=== PATIENT | female | born 1970 | race Caucasian/White ===

== ENCOUNTER 2019-06-27 19:52 | Emergency (ER) | payer OTHER, SELFPAY ==
[2019-06-27 20:30] VITALS: BP 133/69; PULSE 91; RESP 18; TEMP 37.3; O2SAT 100
[2019-06-27 20:35] LABS: Basophils Absolute Auto 0.1 K/mm3 (0.0-0.1); Basophils Percent Auto 0.7 % (0.2-1.2); Eosinophils Percent Auto 0.1 % (0-4.4); Hematocrit 45.1 % (37.0-47.0); Immature Granulocyte Absolute 0.04 K/mm3 (0.00-0.031); Immature Granulocyte Percent A 0.3 % (0-0.5); Lymphocytes Absolute Auto 1.53 K/mm3 (0.9-3.2); Lymphocytes Percent Auto 10.3 % (18.3-44.2); Mean Corpuscular HGB Conc 33.3 g/dl (32-36); Mean Corpuscular Hemoglobin 29.6 pg (26-34); Mean Corpuscular Volume 89.1 fl (80-100); Mean Platelet Volume 9.9 fl (7.4-10.4); Monocytes Absolute Auto 0.7 K/mm3 (0.1-0.6); Monocytes Percent Auto 4.4 % (2.6-8.5); Neutrophils Absolute Auto 12.5 K/mm3 (1.3-6.7); Neutrophils Percent Auto 84.2 % (45.5-73.1); Platelet Count Result 359 k/mm3 (150-375); Red Blood Count 5.06 M/mm3 (4.2-5.4); Red Cell Distribution Width 12.2 % (11.5-14.5); White Blood Count 14.8 K/mm3 (4.5-10.0)
[2019-06-27 20:47] LABS: Alanine Aminotransferase 13 U/L (4-35); Albumin Level 4.5 g/dL (3.5-5.1); Alkaline Phosphatase 134 U/L (38-126); Aspartate Amino Transferase 19 U/L (14-36); Bilirubin,Total 0.6 mg/dL (0.2-1.3); Blood Urea Nitrogen 8 mg/dL (7-17); Calcium 11.3 mg/dL (8.4-10.2); Carbon Dioxide 23 mmol/L (22-30); Chloride 102 mmol/L (98-107); Estimated Glomerular Filt Rate > 60; Glucose 106 mg/dL (65-105); Lipase 18 U/L (23-300); Sodium 140 mmol/L (137-145)
[2019-06-27 20:51] LABS: Add Urine Microscopic? YES; Amorphous Sediment Urine Few; Appearance Urine Cloudy (Clear); Bacteria Urine Trace /hpf; Bilirubin Urine Negative (Negative); Blood Urine 2+ (Negative); Calcium Oxalate Crystals Urine Present /hpf; Color Urine Yellow (Yellow); Glucose Urine UA Negative (Negative); Ketones Urine 2+ mg/dL (Negative); Leukocyte Esterase Ur Trace LEU/UL (Negative); Mucus Urine Rare /lpf; Nitrate Urine Negative (Negative); Protein Urine Negative (Negative); RBC Urine 21-50 /hpf (0-2); Renal Epithelial Cells Urine Rare /hpf (None Seen); Specific Grav Ur 1.018 (1.001-1.035); Squamous Epithelial Cell Urine Many /hpf (Few)
--- NOTE | 2019-06-27 21:13 | ED.FEVER ---
HPI - Fever General Chief Complaint: Fever Stated Complaint: dehydration Time Seen by Provider: 06/27/19 21:12 Related Data Home Medications Medication Instructions Recorded Confirmed hydrochlorothiazide 04/26/19 lisinopril 04/26/19 Allergies Allergy/AdvReac Type Severity Reaction Status Date / Time codeine Allergy Severe Swelling Verified 09/08/18 11:04 Penicillins AdvReac Severe Nausea and Verified 09/08/18 11:04 Vomiting Course Vital Signs Vital signs: Vital Signs Temperature 37.3 C 06/27/19 20:30 Pulse Rate 91 06/27/19 20:30 Respiratory Rate 18 06/27/19 20:30 Blood Pressure 133/69 06/27/19 20:30 Pulse Oximetry 100 06/27/19 20:30 Temperature 37.3 C 06/27/19 20:30 Pulse Rate 91 06/27/19 20:30 Respiratory Rate 18 06/27/19 20:30 Blood Pressure 133/69 06/27/19 20:30 Pulse Oximetry 100 06/27/19 20:30 MDM - Fever Lab Data Result diagrams: 06/27/19 20:29 06/27/19 20:29 Labs: Lab Results 06/27/19 06/27/19 06/27/19 Range/Units 20:29 20:29 20:41 WBC 14.8 H (4.5-10.0) K/mm3 RBC 5.06 (4.2-5.4) M/mm3 Hgb 15.0 (12.0-15.0) g/dL Hct 45.1 (37.0-47.0) % MCV 89.1 (80-100) fl MCH 29.6 (26-34) pg MCHC 33.3 (32-36) g/dl RDW 12.2 (11.5-14.5) % Plt Count 359 (150-375) k/mm3 MPV 9.9 (7.4-10.4) fl Immature Gran % (Auto) 0.3 (0-0.5) % Neut % (Auto) 84.2 H (45.5-73.1) % Lymph % (Auto) 10.3 L (18.3-44.2) % [place] % (Auto) 4.4 (2.6-8.5) % Eos % (Auto) 0.1 (0-4.4) % Baso % (Auto) 0.7 (0.2-1.2) % Lymph # (Auto) 1.53 (0.9-3.2) K/mm3 [place] # (Auto) 0.7 H (0.1-0.6) K/mm3 Eos # (Auto) 0.0 (0-0.3) K/mm3 Baso # (Auto) 0.1 (0.0-0.1) K/mm3 Abs Immat Gran (auto) 0.04 H (0.00-0.031) K/mm3 Absolute Neuts (auto) 12.5 H (1.3-6.7) K/mm3 Absolute Nucleated RBC 0.0 (0.0-0.012) K/mm3 Nucleated RBC % 0.0 (0.0-0.2) % Sodium 140 (137-145) mmol/L Potassium 4.0 (3.4-5.0) mmol/L Chloride 102 (98-107) mmol/L Carbon Dioxide 23 (22-30) mmol/L BUN 8 (7-17) mg/dL Creatinine 0.90 (0.7-1.0) mg/dL Estim Creat Clear Calc Not Reportable Estimated GFR > 60 (59 - ) Glucose 106 H (65-105) mg/dL Calcium 11.3 H (8.4-10.2) mg/dL Total Bilirubin 0.6 (0.2-1.3) mg/dL AST 19 (14-36) U/L ALT 13 (4-35) U/L Alkaline Phosphatase 134 H (38-126) U/L Total Protein 8.0 (6.3-8.2) g/dL Albumin 4.5 (3.5-5.1) g/dL Lipase 18 L (23-300) U/L Urine Color Yellow (Yellow) Urine Appearance Cloudy H (Clear) Urine pH 6.0 (5.0-9.0) Ur Specific [place] 1.018 (1.001-1.035) Urine Protein Negative (Negative) mg/dL Urine Glucose (UA) Negative (Negative) mg/dL Urine Ketones 2+ H (Negative) mg/dL Ur Blood (Man) 2+ H (Negative) Urine Nitrate Negative (Negative) Urine Bilirubin Negative (Negative) Urine Urobilinogen 2.0 H (<2.0) mg/dL Leukocyte Esterase Rfl Trace H (Negative) CORY/UL Urine RBC 21-50 H (0-2) /hpf Urine WBC 7-9 H /hpf Ur Squamous Epith Cells Many H (Few) /hpf Ur Renal Epithelial Cell Rare H (None Seen) /hpf Calcium Oxalate Crystal Present (None) /hpf Amorphous Sediment Few H (None) Urine Bacteria Trace /hpf Urine Mucus Rare /lpf UCG Bedside Result Negative Reference Range: Negative Discharge Plan Discharge Prescriptions: No Action lisinopril 20 mg tablet RF: 0 hydrochlorothiazide 12.5 mg capsule RF: 0 clindamycin HCl 300 mg capsule 300 mg PO Q8H 10 Days Qty: 30 RF: 0 Lidocaine Viscous 2 % solution 1 applic MUCOUS MEM QID PRN (Reason: pain) Qty: 100 RF: 0
[2019-06-27 21:14] VITALS: BP 136/75; PULSE 72
[2019-06-27 21:15] VITALS: BP 119/73; BP 133/85; PULSE 83; PULSE 91
[2019-06-27 21:16] VITALS: BP 125/72; PULSE 80; RESP 20; TEMP 37.1; O2SAT 97
--- NOTE | 2019-06-27 21:24 | ED.NAVMDI ---
HPI - Nausea/Vomiting/Diarrhea General Chief complaint: Fever Stated complaint: dehydration Time Seen by Provider: 06/27/19 21:12 Source: patient and RN notes reviewed Mode of arrival: other Limitations: no limitations History of Present Illness HPI Narrative: Pt is a 49 y/o female who presents with c/o N/V/D since 3 PM. Pt denies being around any sick contacts. Pt also reports cough and chills, but denies fever and abdominal pain. MD elicited complaint: nausea, vomiting and diarrhea Onset (ago): hour(s) Associated nausea: Yes Associated abdominal pain: No Associated symptoms: cough and fever/chills Related Data Home Medications Medication Instructions Recorded Confirmed hydrochlorothiazide 04/26/19 lisinopril 04/26/19 Allergies Allergy/AdvReac Type Severity Reaction Status Date / Time codeine Allergy Severe Swelling Verified 09/08/18 11:04 Penicillins AdvReac Severe Nausea and Verified 09/08/18 11:04 Vomiting Review of Systems Review of Systems: All systems reviewed & are unremarkable except as noted in HPI and below Constitutional: Constitutional: Reports chills and Denies fever(s) Respiratory: Respiratory: Reports cough Gastrointestinal: Gastrointestinal: Denies abdominal pain, Reports diarrhea, Reports nausea and Reports vomiting PMFSH Past Medical History Medical History (Updated 06/27/19 @ 22:34 by Severino Redd MD) Anxiety Asthma Bronchitis Cyst right earlobe Dystocia HTN (hypertension) Hyperlipidemia Surgical History Surgical History (Updated 06/27/19 @ 21:36 by Jeimy Rodriguez) History of endometrial ablation Social History Social History (Updated 06/27/19 @ 21:36 by Jeimy Rodriguez) Smoking packs per day: 0.5 Smoking cigarettes per day: 10.0 Smoking status: Current every day smoker Tobacco type: cigarettes Gender identity (if verbalized by the patient): Female Exam Narrative: Exam Narrative: GENERAL: Well-appearing, well-nourished, and in no acute distress. HEAD: Normocephalic, atraumatic. EYES: PERRLA and EOMI. ENT: Nares clear, Mucous membranes moist. NECK: Supple. CHEST: Clear to auscultation. No respiratory distress. HEART: Regular rate and rhythm. No murmur heard. Normal peripheral pulses. ABDOMEN: Soft, non tender, non distended, normal active bowel sounds. EXTREMITIES: Normal range of motion. No edema. SKIN: Warm, dry, no rash. NEURO: No focal deficits. Alert and oriented x3. PSYCH: Normal mood and affect. Course Course Emergency Course: informed pt about her lab work , i advised her to take zofran as needed. pt had no further episodes of N/ V here in the ER Vital Signs Vital signs: Vital Signs Temperature 37.3 C 06/27/19 20:30 Pulse Rate 91 06/27/19 20:30 Respiratory Rate 18 06/27/19 20:30 Blood Pressure 133/69 06/27/19 20:30 Pulse Oximetry 100 06/27/19 20:30 Temperature 37.1 C 06/27/19 21:16 Pulse Rate 80 06/27/19 21:16 Respiratory Rate 20 06/27/19 21:16 Blood Pressure 125/72 06/27/19 21:16 Pulse Oximetry 97 06/27/19 21:16 MDM - Nausea/Vomiting/Diarrhea Lab Data Result diagrams: 06/27/19 20:29 06/27/19 20:29 Labs: Lab Results 06/27/19 06/27/19 06/27/19 Range/Units 20:29 20:29 20:41 WBC 14.8 H (4.5-10.0) K/mm3 RBC 5.06 (4.2-5.4) M/mm3 Hgb 15.0 (12.0-15.0) g/dL Hct 45.1 (37.0-47.0) % MCV 89.1 (80-100) fl MCH 29.6 (26-34) pg MCHC 33.3 (32-36) g/dl RDW 12.2 (11.5-14.5) % Plt Count 359 (150-375) k/mm3 MPV 9.9 (7.4-10.4) fl Immature Gran % (Auto) 0.3 (0-0.5) % Neut % (Auto) 84.2 H (45.5-73.1) % Lymph % (Auto) 10.3 L (18.3-44.2) % [place] % (Auto) 4.4 (2.6-8.5) % Eos % (Auto) 0.1 (0-4.4) % Baso % (Auto) 0.7 (0.2-1.2) % Lymph # (Auto) 1.53 (0.9-3.2) K/mm3 [place] # (Auto) 0.7 H (0.1-0.6) K/mm3 Eos # (Auto) 0.0 (0-0.3) K/mm3 Baso # (Auto) 0.1 (0.0-0.1) K/mm3 A
[2019-06-27] MEDS: ONDANSETRON INJ 4 MG/2 ML VIAL IV PUSH (21:47)
[2019-06-27] MEDS: SODIUM CHLORIDE 0.9% IV 1,000 ML 999 ML IV CONT (21:47)
--- NOTE | 2019-07-02 01:40 | PC.NURSE ---
LATE ENTRY This note is being entered to document information to the patient's record. The following information was omitted on [06/27/2019], NS STOP TIME 2234by [BRIE BLACK].
== END 2019-06-27 22:41 | disposition home or self-care (01) ==
PROVIDERS: Emergency Medicine; Emergency Provider Family Medicine; PCP Family Medicine
DX: A08.4 Viral intestinal infection, unspecified (principal); J45.909 Unspecified asthma, uncomplicated; I10 Essential (primary) hypertension; E78.5 Hyperlipidemia, unspecified; F17.210 Nicotine dependence, cigarettes, uncomplicated
CPT/HCPCS: 36415; 80053; 81001; 81025; 83690; 85025; 87077; 87086; 87088; 87186; 96361; 96374; 99284; J2405; J7030

== ENCOUNTER 2021-09-03 13:30 | Emergency (ER) | payer OTHER, SELFPAY ==
[2021-09-03 13:41] VITALS: BP 167/77; PULSE 96; RESP 16; TEMP 36.6; O2SAT 99
--- NOTE | 2021-09-03 14:17 | ED.DENTAL ---
HPI - Dental/Oral General Chief complaint: Dental/Oral Stated complaint: toothache Time Seen by Provider: 09/03/21 14:02 Source: patient History of Present Illness HPI Narrative: Patient presents with a tooth ache on tooth 24 and 23. She had symptoms for approximately 2 days getting progressively worse. Her pain is achy, constant, worse with touching the tooth, radiates across her face. She is attempted to see a dentist but she is having difficulty getting into 1. She had a similar bout in 2019 and she said responded well to the antibiotics and lidocaine. She denies any fevers, difficulty swallowing, nausea, vomiting, fevers Related Data Home Medications Medication Instructions Recorded Confirmed hydrochlorothiazide 04/26/19 lisinopril 20 mg PO DAILY 04/26/19 Allergies Allergy/AdvReac Type Severity Reaction Status Date / Time codeine Allergy Severe Swelling Verified 09/03/21 14:21 Penicillins AdvReac Severe Nausea and Verified 09/03/21 14:21 Vomiting Review of Systems Review of Systems: CONSTITUTIONAL: Denies fever, chills, or sweats. EYES: Denies visual changes, redness, or discharge. ENT: Denies rhinorrhea, congestion, sore throat, or otalgia. CARDIOVASCULAR: Denies chest pain, palpitations, or edema. RESPIRATORY: Denies cough or dyspnea. GASTROINTESTINAL: Denies abdominal pain, nausea, vomiting, or diarrhea. GENITOURINARY: Denies dysuria or hematuria. SKIN: Denies rash or itching. MUSCULOSKELETAL: Denies back pain, joint pain, or myalgia. NEUROLOGIC: Denies numbness, dizziness, or weakness. PSYCHIATRIC: Denies anxiety or depression. All systems reviewed & are unremarkable except as noted in HPI and below PMFSH Past Medical History Medical History Anxiety Asthma Bronchitis Cyst right earlobe Dystocia HTN (hypertension) Hyperlipidemia Surgical History Surgical History History of endometrial ablation Social History Social History Smoking packs per day: 0.5 Smoking cigarettes per day: 10.0 Smoking status: Current every day smoker Tobacco type: cigarettes Gender identity (if verbalized by the patient): Female Exam Narrative: GENERAL: Well-appearing, well-nourished, and in no acute distress. HEAD: Normocephalic, atraumatic. EYES: PERRLA and EOMI. ENT: Nares clear, no rhinorrhea or epistaxis. Mucous membranes moist. Swelling at the base of tooth 23 with signs of tenderness no purulent drainage NECK: Supple. No masses. No JVD EXTREMITIES: Normal range of motion. No edema. SKIN: Warm, dry, no rash. NEURO: No focal deficits. Alert and oriented x3. PSYCH: Normal mood and affect. Course Vital Signs Vital signs: Vital Signs Temperature 36.6 C 09/03/21 13:41 Pulse Rate 96 09/03/21 13:41 Respiratory Rate 16 09/03/21 13:41 Blood Pressure 167/77 H 09/03/21 13:41 Pulse Oximetry 99 09/03/21 13:41 Temperature 36.6 C 09/03/21 13:41 Pulse Rate 96 09/03/21 13:41 Respiratory Rate 16 09/03/21 13:41 Blood Pressure 167/77 H 09/03/21 13:41 Pulse Oximetry 99 09/03/21 13:41 MDM - Dental/Oral MDM Narrative Medical decision making narrative: H&P as above, vss, pt looks clinically well, exam swelling at the base of tooth 23, labs/img considered, symptomatic relief available as needed, on reevaluation pt continues to looks clinically well. Suspect dental infection, dns airway compromise, necrotizing soft tissue infection, severe sepsis. plan to tx/monitor as op w/ pcm f/u findings/plan discussed with pt, pt agree/comfortable with plan, return precautions given Discharge Plan Discharge Clinical Impression: Toothache Patient Disposition: Home, Self-Care Condition: Improved Instructions: Antibiotic Form, Dental Abscess (ED) Additional Instructions: Please return if your symptoms worsen or
== END 2021-09-03 14:30 | disposition home or self-care (01) ==
PROVIDERS: Emergency Provider Emergency Medicine; PCP Family Medicine
DX: K08.89 Other specified disorders of teeth and supporting structures (principal); J45.909 Unspecified asthma, uncomplicated; I10 Essential (primary) hypertension; E78.5 Hyperlipidemia, unspecified; F17.210 Nicotine dependence, cigarettes, uncomplicated
CPT/HCPCS: 99283